=== PATIENT | male | born 1980 | race Caucasian/White ===

== ENCOUNTER 2019-02-04 12:15 | Emergency (ER) | payer MEDICAID ==
[2019-02-04] MEDS ORDERED: Sodium Chloride 0.9% 1,000 ML IV ONE (12:25)
[2019-02-04] MEDS ORDERED: Acetaminophen 500 MG TAB PO ONE (12:26)
[2019-02-04] MEDS ORDERED: Acetaminophen 500 MG TAB ONE (12:29)
[2019-02-04 12:45] LABS: % BASOPHILS 1.2 % (0.0-2.0); % EOSINOPHILS 0.1 % (0.0-5.0); % LYMPHOCYTES 4.6 % (20.0-50.0); % MONOCYTES 4.8 % (2.0-10.0); % NEUTROPHILS 89.3 % (40.0-80.0); BASOPHILE ABSOLUTE 0.2 Th/cumm (0-0.2); HEMATOCRIT 43.8 % (41.0-60); HEMOGLOBIN 14.8 gm/dL (12-16); LYMPHOCYTE ABSOLUTE 0.7 Th/cmm (1.5-3.0); MEAN CELL VOLUME 84.8 fl (80-99); MEAN CORPUSCULAR HEMOGLOBIN 28.6 pg (26.0-30.0); MEAN CORPUSCULAR HGB CONC 33.8 pg (28.0-36.0); MONOCYTE ABSOLUTE 0.7 Th/cmm (0.3-1.0); NEUTROPHILE ABSOLUTE 13.1 Th/cmm (1.8-8.0); PLATELET COUNT 206 Th/cmm (150-400); RED BLOOD COUNT 5.16 Mil/cmm (4.30-5.70); RED CELL DISTRIBUTION WIDTH 13.8 % (11.5-20.0); WHITE BLOOD COUNT 14.7 Th/cmm (4.8-10.8)
[2019-02-04 12:53] LABS: LYMPHOCYTE 4.6 % (20-50); NEUTROPHILS 89.3 % (40-80)
[2019-02-04 12:54] LABS: BASOPHIL 0 % (0-3); EOSINOPHIL 0.1 % (0-5); MONOCYTE 4.8 % (2-10)
[2019-02-04 13:00] LABS: CHOLESTEROL 150 mg/dL (<200); HDL -HIGH DENSITY LIPOPROTEIN 56 mg/dL (23-92); TRIGLYCERIDES 62 mg/dL (<150)
[2019-02-04 13:02] LABS: ALB/GLOB RATIO 1.2 (1.0-1.8); ALBUMIN 3.9 gm/dL (4.2-5.5); ALKALINE PHOSPHATASE 54 U/L (34-104); ANION GAP 12.4 (7.0-16.0); BUN - UREA NITROGEN 14 mg/dL (7-25); CALCIUM SERUM 9.3 mg/dL (8.6-10.3); CARBON DIOXIDE 25.6 mEq/L (21.0-31.0); CHLORIDE 96 mEq/L (98-107); GFR AFRICAN-AMERICAN > 60.0 ml/min (>90); GFR NON AFRICAN-AMERICAN > 60.0 ml/min; GLUCOSE 115 mg/dL (70-105); SGOT 16 U/L (13-39); SGPT/ALT 24 U/L (7-52); SODIUM SERUM 130 mEq/L (136-145); TOTAL PROTEIN,SERUM 7.2 gm/dL (6.0-8.3)
[2019-02-04 13:13] LABS: INR 1.01 (0.5-1.4)
--- NOTE | 2019-02-04 13:23 | ED Physician Chart ---
ED Chief Complaint/HPI - Patient Information Date Seen:: 02/04/19 Time Seen:: 12:30 Chief Complaint:: weakness History of Present Illness:: this is a 38 yo obese male bib friends complaining of weakness, fast heart rate and fever. he denies using drugs, smoking but admits to alcohol abuse. he denies diabetes, heart disease and gi problems. Allergies:: Allergies Allergy/AdvReac Type Severity Reaction Status Date / Time amoxicillin Allergy Verified 06/25/17 06:25 Penicillins [PCN] Allergy Verified 02/04/19 12:25 Vitals:: Vital Signs - 8 hr 02/04/19 12:26 Temp 102.5 F HR 136 RR 18 BP 131/78 O2 Sat % 94 Historian:: Patient Review:: Nurse's Note Reviewed, Old Chart Reviewed ED Review of Systems - Review of Systems General/Constitutional: Fever, No chills, No weight loss, No weakness, No diaphoresis, No edema, No loss of appetite, Other (obese) Skin: No skin lesions, No rash, No bruising Head: No headache, No light-headedness Eyes: No loss of vision, No pain, No diplopia ENT: No earache, No nasal drainage, No sore throat, No tinnitus Neck: No neck pain, No swelling, No thyromegaly, No stiffness, No mass noted Cardio Vascular: No chest pain, No palpitations, No PND, No orthopnea, No edema Pulmonary: No SOB, No cough, No sputum, No wheezing GI: No nausea, No vomiting, No diarrhea, No pain, No melena, No hematochezia, No constipation, No hematemesis G/U: No dysuria, No frequency, No hematuria Musculoskeletal: No bone or joint pain, No back pain, No muscle pain Endocrine: No polyuria, No polydipsia Psychiatric: No prior psych history, No depression, No anxiety, No suicidal ideation Hematopoietic: No bruising, No lymphadenopathy Allergic/Immuno: No urticaria, No angioedema Neurological: No syncope, No focal symptoms, No weakness, No paresthesia, No headache, No seizure, No dizziness, No confusion, No vertigo ED Past Medical History - Past Medical History Obtainable: Yes Past Medical History: Other (cellulitis of his legs) Family History: None Social History: Smoker, Alcohol, No Drug Use, Employed Surgical History: None Psychiatricy History: None Medication: Reviewed Family Medical History - Family Member Mother History Unknown: Yes Ethnicity: Hx Family Cancer: No Hx Family Hypertension: No Hx Family Stroke: No Hx Family Diabetes: No Hx Family Dementia: No Hx Family AIDS: No Hx Family HIV: No Hx Family Hepatitis: No ED Physical Exam - Physical Examination General/Constitutional: Awake, Well-developed, well-nourished, Alert, No distress, GCS 15, Non-toxic appearing, Ambulatory Other Gen/Cons comments:: obese Head: Atraumatic Eyes: Lids, conjuctiva normal, PERRL, EOMI Skin: Nl inspection, No rash, No skin lesions, No ecchymosis, Well hydrated, No lymphadenopathy ENMT: External ears, nose nl, Nasal exam nl, Lips, teeth, gums nl Neck: Nontender, Full ROM w/o pain, No JVD, No nuchal rigidity, No bruit, No mass, No stridor Respiratory: Nl effort/Exclusion, Clear to Auscultation, No Wheeze/Rhonchi/Rales Cardio Vascular: RRR, No murmur, gallop, rubs, NL S1 S2 GI: No tenderness/rebounding/guarding, No organomegaly, No hernia, Normal BS's, Nondistended, No mass/bruits, No McBurney tenderness : No CVA tenderness Extremities: No tenderness or effusion, Full ROM, normal strength in all extremities, No edema, Normal digits & nails Neuro/Psych: Alert/oriented, DTR's symmetric, Normal sensory exam, Normal motor strength, Judgement/insight normal, Mood normal, Normal gait, No focal deficits Misc: Normal back, No paraspinal tenderness ED Labs/Radiology/EKG Results - Lab Results Results: Laboratory Tests 02/04/19 02/04/19 02/04/19 12:33 12:33 12:33 WBC 14.7 H RBC 5.16 Hgb 14.8 Hct 43.8 MCV 84.8 MCH 28.6 MCHC Differential 33.8 RDW 13.8 Plt Count 206 MPV 9.2 Neutrophils % 89.3 H Lymphocytes % 4.6 L Monocytes % 4.8 Eosinophils % 0.1 Basophils % 1.2 Neutrophils (Manual) 89.3 H Lymphocytes 4.6 L Monocytes 4.8 Eosinophils 0.1 Basophils 0 Sodium 130 L Potassium 4.0 Chloride 96 L Carbon Dioxide 25.6 Anion Gap 12.4 BUN 14 Creatinine 1.0 Est GFR ( Amer) > 60.0 Est GFR (Non-Af Amer) > 60.0 BUN/Creatinine Ratio 14.0 Glucose 115 H Calcium 9.3 Total Bilirubin 1.0 AST 16 ALT 24 Alkaline Phosphatase 54 Creatine Kinase Troponin I Total Protein 7.2 Albumin 3.9 L Globulin 3.3 Albumin/Globulin Ratio 1.2 Triglycerides 62 Cholesterol 150 LDL Cholesterol Direct 83 HDL Cholesterol 56 02/04/19 02/04/19 12:33 12:33 WBC RBC Hgb Hct MCV MCH MCHC Differential RDW Plt Count MPV Neutrophils % Lymphocytes % Monocytes % Eosinophils % Basophils % Neutrophils (Manual) Lymphocytes Monocytes Eosinophils Basophils Sodium Potassium Chloride Carbon Dioxide Anion Gap BUN Creatinine Est GFR ( Amer) Est GFR (Non-Af Amer) BUN/Creatinine Ratio Glucose Calcium Total Bilirubin AST ALT Alkaline Phosphatase Creatine Kinase 89 Troponin I 0.03 Total Protein Albumin Globulin Albumin/Globulin Ratio Triglycerides Cholesterol LDL Cholesterol Direct HDL Cholesterol - Radiology Results Results: chest x-ray = nad - EKG Interpretations EKG Time:: 12:43 Rate & Rhythm: UDES=[id number], SINUS TACHYCARDIA [place]: RIGHT ED Assessment - Assessment General Assessment: dehydration obesity drug abuse ED Septic Shock - . Is Septic Shock (SBP<90, OR Lactate>4 mmol\L) present?: No - <6hrs of presentation: Vital Signs: Vital Signs - 8 hr 02/04/19 12:26 Temp 102.5 F HR 136 RR 18 BP 131/78 O2 Sat % 94 ED Reassessment (Disposition) - Reassessment Reassessment Condition:: Improved - Diagnosis Diagnosis:: dehydration obesity drug abuse - Aftercare/Follow up Instructions Aftercare/Follow-Up Instructions:: Counseled pt regarding lab results/diagnosis & need follow up, Refer to Discharge Instructions, Counseled pt & family regarding lab results/diagnosis & need follow up - Patient Disposition Discharge/Transfer:: Home Condition at Disposition:: Improved
[2019-02-04 15:38] LABS: URINE SOURCE CLEAN C
[2019-02-04 15:40] LABS: URINE BILIRUBIN NEGATIVE (NEGATIVE); URINE BLOOD TRACE (NEGATIVE); URINE GLUCOSE (UA) NEGATIVE (NEGATIVE); URINE KETONE NEGATIVE (NEGATIVE); URINE LEUKOCYTE ESTERASE NEGATIVE (NEGATIVE); URINE MICROSCOPIC INDICATED? YES; URINE NITRATE NEGATIVE (NEGATIVE); URINE PH 6.5 (4.6 - 8.0); URINE PROTEIN 100 mg/dL (NEGATIVE)
[2019-02-04 15:51] LABS: AMPHETAMINE URINE POSITIVE (NEGATIVE); CANNABINOID THC POSITIVE (NEGATIVE); METHAMPHETAMINES QUAL URINE POSITIVE (NEGATIVE)
[2019-02-04 15:52] LABS: BARBITURATES URINE NEGATIVE (NEGATIVE); BENZODIAZEPINES QUAL URINE NEGATIVE (NEGATIVE); COCAINE METABOLITE QUAL URINE NEGATIVE (NEGATIVE); METHADONE URINE NEGATIVE (NEGATIVE); OPIATES (MORPHINE) QUAL. URINE NEGATIVE (NEGATIVE); PHENCYCLIDINE (PCP) URINE NEGATIVE (NEGATIVE); TRICYCLICS (TCA) QUAL. URINE NEGATIVE (NEGATIVE)
[2019-02-04 16:02] LABS: URINE CLARITY CLEAR (CLEAR); URINE COLOR YELLOW
[2019-02-04 16:03] LABS: URINE WBC 0-2 /hpf (0-5)
[2019-02-04 16:04] LABS: URINE BACTERIA FEW /hpf (NONE SEEN); URINE EPITHELIAL CELLS NONE SEEN /lpf (FEW)
--- NOTE | 2019-02-05 10:57 | Diagnostic Imaging Report ---
CHEST X-RAY: AP view INDICATION: pain COMPARISON: None FINDINGS: Suboptimal lung volume is are noted with mild bronchovascular crowding. There is no focal consolidation or pleural effusions The heart is normal in size. The osseous structures demonstrate no acute abnormalities. IMPRESSION: Suboptimal lung volume is a mild bronchovascular crowding atelectatic changes.. No focal consolidation is identified.
--- NOTE | 2019-02-05 11:03 | Diagnostic Imaging Report ---
Bilateral lower extremity DVT study HISTORY: Leg pain and elevated d-dimer COMPARISON: None Technique: Longitudinal and transverse sonographic images of the bilateral lower extremity veins were obtained with doppler analysis. FINDINGS: Exam is limited due to body habitus including poor visualization of the right mid and distal superficial femoral veins. Otherwise, there is normal compressibility, augmentation and phasicity of the bilateral common femoral, visualized portions of the superficial femoral, popliteal, and posterior tibial veins. No thrombus is visualized. IMPRESSION: Poor visualization of the right mid and distal superficial femoral veins due to body habitus. Otherwise no evidence of DVT within the bilateral lower extremity venous system.
== END 2019-02-04 16:45 | disposition home or self-care (01) ==
LOC: ER 12:15
DX: E86.0 Dehydration (principal); F19.10 Other psychoactive substance abuse, uncomplicated; E66.9 Obesity, unspecified; F17.200 Nicotine dependence, unspecified, uncomplicated; Z88.0 Allergy status to penicillin; Z88.1 Allergy status to other antibiotic agents
CPT/HCPCS: 99284; 96374; 93005; 93970; 71045; 84484; 36415; 80307; 84443; 86592; 85007; 85025; 85610; 85730; 81001; 82550; 80053; 80061; 87040 ×2; J0696; Z7610